=== PATIENT | female | born 1945 | race Caucasian/White ===

== ENCOUNTER → 2021-03-31 13:44 | Outpatient (BNVA) | payer MEDICARE, SELFPAY | PROVIDERS: PCP Physician Assistant Medical; Referring Provider Physician Assistant Medical; Visit Provider Surgery | DX: G44.52 New daily persistent headache (NDPH) (principal); R53.83 Other fatigue; R07.89 Other chest pain; I35.0 Nonrheumatic aortic (valve) stenosis; E11.9 Type 2 diabetes mellitus without complications; M35.3 Polymyalgia rheumatica; G43.409 Hemiplegic migraine, not intractable, without status migrainosus; I67.1 Cerebral aneurysm, nonruptured; G47.33 Obstructive sleep apnea (adult) (pediatric); R29.818 Other symptoms and signs involving the nervous system | CPT/HCPCS: 99215 ==

== ENCOUNTER 2021-04-07 01:53 | Outpatient (CLI) | payer MEDICARE, SELFPAY ==
--- NOTE | 2021-04-07 08:15 | DI.CT_ITS ---
Exam(s) CT BRAIN CTA EXAM: CT BRAIN CTA CLINICAL HISTORY: hx of braiN aneursym,MRI in 2018 in mass,NEW HEADACHE,I67.1,G44.52. TECHNIQUE: Imaging Protocol: Axial CT angiography was performed with multi-slice acquisition and mu lti-planar and/or 3D reconstructions. CONTRAST MATERIAL: Intravenous: Omnipaque 350 Contrast volume:structured data in ml Intravenous: Omnipaque 350 Contrast volume:85 cc COMPARISON: No exams were available for comparison FINDINGS: CT Head W/O and W contrast: Ventricles and Extra axial spaces: Normal in size and morphology for the patient's age. Hemorrhage: None. Cerebral parenchyma: Normal. Midline shift: None. Brainstem/Cerebellum: Normal. Calvarium: Hyperostosis frontalis interna Visualized Paranasal sinuses/Mastoids: Clear. Soft Tissues: Unremarkable. Enhancement: Normal. CTA Brain W: Internal Carotid Arteries: Petrous: Normal. Cavernous: Normal. Cerebral: Normal. Middle Cerebral Arteries: Right: No aneurysm, occlusion or significant stenosis. Left: No aneurysm, occlusion or significant stenosis. Anterior Cerebral Arteries: Right: No aneurysm, occlusion or significant stenosis. Left: No aneurysm, occlusion or significant stenosis. Posterior cerebral Arteries: Right: No aneurysm, occlusion or significant stenosis. Left: No aneurysm, occlusion or significant stenosis. Vertebral Arteries: Right: No aneurysm, occlusion or significant stenosis. Left: No aneurysm, occlusion or significant stenosis. Basilar Artery: No aneurysm, occlusion or significant stenosis. IMPRESSION: 1. Normal CTA examination of the [place]. 2. Unremarkable CT Head. RADIATION DOSE DELIVERED: 1,846.31mGy.cm Total DLP 1,846.31mGy.cm Total DLP DATA REPOSITORY: All CT scans at this facility are submitted to the National Radiology Data Registry (NRDR) Dose Index Registry (DIR) with the [employer] ([employer]). RADIATION OPTIMIZATION: All CT scans at this facility use at least one of these dose optimization te chniques: automated exposure control; mA and/or kV adjustment per patient size (includes targeted exa ms where dose is matched to clinical indication); or iterative reconstruction.
[2021-04-07 14:44] LABS: CREATININE 0.9 mg/dL (0.55-1.02)
[2021-04-07] MEDS: Omnipaque 350 MG/ML 100 ML BTL 85 ML IJ (15:42)
== END 2021-04-07 02:13 ==
PROVIDERS: PCP Physician Assistant Medical; Visit Provider Surgery
DX: I67.1 Cerebral aneurysm, nonruptured (principal); G44.52 New daily persistent headache (NDPH)
CPT/HCPCS: 70496; 82565; J3490

== ENCOUNTER 2021-04-20 01:53 | Outpatient (CLI) | payer MEDICARE, SELFPAY ==
--- NOTE | 2021-04-20 08:00 | DI.US_ITS ---
Exam(s) US CAROTID EXAM: US CAROTID CLINICAL HISTORY: transient right hemiparalysis, BRAIN ANEURYSM, HEMIPLEGIC MIGRAINE, CHAVES,. TECHNIQUE: Ultrasound carotids performed using grayscale, color-flow, and spectral Doppler imaging. COMPARISON: No exams were available for comparison FINDINGS: RIGHT CAROTID ARTERY: Plaque: Ellb-[id number]-[id number] calcific plaque in the carotid bulb and the origins of both the internal and external carotid arteries. Velocity elevation: None. LEFT CAROTID ARTERY: Plaque: There is mild calcific plaque in the carotid bulb and origins of both internal and external c arotid arteries. Velocity elevation: None. VERTEBRAL ARTERIES: Antegrade flow. Measurements: R Bulb: 81.6cm/s PS / 12.2cm/s ED R CCA: 78.4cm/s PS / 12.9cm/s ED R ECA: 81cm/s PS / 7.7cm/s ED R ICA Prox: 91.3cm/s PS /18cm/s ED R ICA Mid: 74.6cm/s PS / 13.5cm/s ED R ICA Distal: 66.2cm/s PS /19.3cm/s ED R Vert: 47.9cm/s PS / 11cm/s ED R SVR: 1.16 R DVR: 1.4 L Bulb: 122.9cm/s PS /16.6cm/s ED L CCA: 73.1cm/s PS / 13.1cm/s ED L ECA: 117.3cm/s PS /13.2cm/s ED L ICA Prox:109.1cm/s PS / 9.9cm/s ED L ICA Mid: 61.3cm/sPS / 17.4cm/s ED L ICA Distal: 65.9cm/s PS / 19.1cm/s ED L Vert: 43.5cm/s PS / 11.6cm/s ED L SVR: 1.49 L DVR: 0.76 IMPRESSION: No evidence for hemodynamically significant carotid stenosis. Criteria for Carotid Stenosis: Normal: ICA PSV <125 cm/s no plaque or intimal thickening is visible. <50% stenosis: ICA PSV <125 cm/s and plaque or intimal thickening is visible. 50-69% stenosis: ICA PSV is 125-250 cm/s and plaque is visible. >70% stenosis to near occlusion: ICA PSV >250 cm/s with visible plaque and luminal narrowing. DATA REPOSITORY:
== END 2021-04-20 02:13 ==
PROVIDERS: PCP Physician Assistant Medical; Visit Provider Surgery
DX: R53.83 Other fatigue (principal); R29.818 Other symptoms and signs involving the nervous system; G43.409 Hemiplegic migraine, not intractable, without status migrainosus; G44.52 New daily persistent headache (NDPH); I65.23 Occlusion and stenosis of bilateral carotid arteries
CPT/HCPCS: 93880